=== PATIENT | male | born 1960 | race Caucasian/White ===

== ENCOUNTER → 2021-06-15 | Outpatient (RCR) | payer OTHER | LOC: M ST 06-10 13:01 | PROVIDERS: ATTEND Internal Medicine | DX: Z93.1 Gastrostomy status (principal) ==

== ENCOUNTER 2021-06-24 14:21 | Outpatient (RCR) | payer OTHER | END 2021-07-16 | LOC: M ST 14:21 | PROVIDERS: ATTEND Internal Medicine | DX: Z93.1 Gastrostomy status (principal) ==

== ENCOUNTER → 2022-05-31 | Outpatient (CLI) | payer OTHER | LOC: M RAD 14:52 | PROVIDERS: ATTEND Surgery | DX: Z89.432 Acquired absence of left foot (principal) ==